=== PATIENT | male | born 1995 | race Caucasian/White ===

== ENCOUNTER 2019-02-11 11:27 | Emergency (ER) | payer BC ==
[~2019-02-11] VITALS: Ht 185.4 cm; Wt 77.1 kg
[2019-02-11] MEDS ORDERED: Prednisone20 MG PO (11:57)
== END 2019-02-11 12:21 | disposition home or self-care (01) ==
LOC: ER 11:27
DX: L23.7 Allergic contact dermatitis due to plants, except food (principal); Z91.048 Other nonmedicinal substance allergy status; Z79.52 Long term (current) use of systemic steroids
CPT/HCPCS: 96372; 99282-25; J3301